=== PATIENT | female | born 1945 | race Caucasian/White ===

== ENCOUNTER 2023-01-06 14:10 | Emergency (ER) | payer MEDICARE, BC, SELFPAY ==
[2023-01-06 14:22] VITALS: BP 123/103; PULSE 90; RESP 19; TEMP 36.6; O2SAT 96; BMI 26.4
--- NOTE | 2023-01-06 14:22 | ED.LOWEXIN ---
HPI - Extremity Injury (Lower) General Chief Complaint: Wound/Laceration Stated Complaint: laceration on R leg? Time Seen by Provider: 01/06/23 14:32 Source: patient Mode of arrival: ambulatory Limitations: no limitations History of Present Illness HPI Narrative: 77 yo female presents to the ER for evaluation of a laceration to the right lower leg sustained yesterday when she accidentally scrapped her leg on the metal frame of a hotel bed. She states it has been intermittently been bleeding since. She also hit her leg on the same area the day before and had swelling and bruising to the leg before she cut it. She is not up to date on her tdap. complaint: leg injury Onset (ago): day(s) (1) Type of Injury: blunt Place: other (hotel) Severity: moderate Relieving factors: immobilization and rest Exacerbating factors: weight bearing, movement and palpation Context: direct blow Associated symptoms: swelling, ambulatory and other (bleeding and bruising) Other symptoms: none Treatments prior to arrival: bandage Related Data Previous Rx's Medication Instructions Recorded amoxicillin 875 mg-potassium 1 tab PO BID #10 tabs 01/06/23 clavulanate 125 mg tablet Allergies Allergy/AdvReac Type Severity Reaction Status Date / Time No Known Allergies Allergy Verified 01/06/23 14:21 Review of Systems Review of Systems: Yes all other systems are reviewed and are negative [facility] Social History Social History Advance Directives: No Advance Directives Information Provided: Yes Physical Exam Vital Signs: Vital Signs: Last Vital Signs Temp 98 F 01/06/23 14:22 Pulse 90 01/06/23 14:22 Resp 19 01/06/23 14:22 BP 123/103 H 01/06/23 14:22 Pulse Ox 96 01/06/23 14:22 O2 Del Method Room Air 01/06/23 14:22 BMI result Body Mass Index 26.4 Appearance: Alert. Oriented X3. No acute distress. HEENT: normal inspection CVS: Normal heart rate and rhythm. Pulses normal. Respiratory: No respiratory distress. Skin: Skin warm and dry. Normal skin color. Normal skin turgor. No rashes. Extremities: right anterior leg with a blood soaked band aid. there is a superficial v-shaped laceration of the lower leg approx 1.5 cm with 2cm surrounding hematoma and ecchymosis extending to the distal 1/2 of the lower leg. no active bleeding. no calf tenderness or swelling Neuro: Oriented X 3. No motor deficit. No sensory deficit. Medications Administered Discontinued Medications Generic Name Dose Route Start Last Admin Trade Name Luís PRN Reason Stop Dose Admin Diphtheria/Tetanus/Acell Pertussis 0.5 ml 01/06/23 14:27 01/06/23 14:30 Diphth,Pertus(Acell),Tet Adult 0.5 Ml Syringe IM 01/06/23 14:28 0.5 ml .ONCE ONE Administration Medical Decision Making Medical Decision Making MDM Narrative: 77 yo female presenting for evaluation of a right lower leg wound and bruising after she accidentally kicked a metal bed frame. needs tdap would cleaned and assess. skin glue and steri strips applied for closure. will prescribe empiric abx given nature of wound. no need for imaging today. signs and symptoms of infection d/w patient. stable for d/c home Differential Diagnosis Differential Diagnoses: The differential diagnosis associated with the presentation includes superficial laceration, deep laceration, hematoma, open tibia fracture less likely Independent Historian Clinical information obtained from an independent historian. History obtained from or confirmed by: Spouse Tests considered The following testing was considered but not selected: considered x-ray tibia Prescription Management I considered prescription management with: Pain Medication and Antibiotic Procedures Laceration Laceration 1: Site: lower extremity Side (If applicable): right Size (cm): 1.5 Description: irregular Depth: simple, single layer Pre-repair: irrigated extensively and deep structures intact Skin layer closed with: other (exofin skin glue and steristrips) Critical Care Time Critical Care Time Critical Care Time: No Discharge Plan Discharge Clinical Impression: Hematoma Laceration of right lower extremity Qualifiers: Encounter type: initial encounter Qualified Code(s): S81.811A - Laceration without foreign body, right lower leg, initial encounter Patient Disposition: Home, Self-Care Instructions: Laceration (DC) Additional Instructions: skin glue and steri strips were used to close your wound today these will come off on their own, usually within a week it is okay to briefly get wet, then pat dry change the dressing daily and monitor for signs of infection take the prescribed antibiotics as directed, complete the entire course and do not miss any doses if you develop new or worsening symptoms call 911 or come back to the ER for further evaluation. Prescriptions: New amoxicillin-pot clavulanate 875-125 mg tablet 1 tab PO BID Qty: 10 0RF Interventions: ED Discharge Assessment Last Done: 01/06/23 14:35
== END 2023-01-06 14:52 | disposition home or self-care (01) ==
LOC: HO.ED 14:39
PROVIDERS: Emergency Provider Emergency Medicine Emergency Medical Services
DX: S81.811A Laceration without foreign body, right lower leg, initial encounter (principal); S80.11XA Contusion of right lower leg, initial encounter; W26.8XXA Contact with other sharp object(s), not elsewhere classified, initial encounter; Y93.89 Activity, other specified; Y92.59 Other trade areas as the place of occurrence of the external cause; Y99.9 Unspecified external cause status
CPT/HCPCS: 12001; 90471; 90715; 99282; 99284

== ENCOUNTER 2023-01-07 16:55 | Emergency (ER) | payer MEDICARE, BC, SELFPAY ==
[2023-01-07 18:10] VITALS: BP 156/87; PULSE 75; RESP 18; TEMP 36.5; O2SAT 98; BMI 26.4
--- NOTE | 2023-01-07 18:17 | ED.GENADULT ---
HPI - General Adult General Chief complaint: Wound/Laceration Stated complaint: Cut on leg, red and swollen Time Seen by Provider: 01/07/23 20:14 Source: patient Mode of arrival: ambulatory Limitations: no limitations History of Present Illness HPI narrative: Patient had abrasion and hematoma right lower extremity 2 days ago was seen here yesterday Steri-Strips and skin glue was applied comes here as she noticed redness around it patient took Augmentin today as prescribed. Patient does have history of MDS platelets count were 36K 2 days ago patient slightly concerned as has slight erythema around the abrasion no fever no chills no pus discharge patient received tetanus shot yesterday Related Data Previous Rx's Medication Instructions Recorded amoxicillin 875 mg-potassium 1 tab PO BID #10 tabs 01/06/23 clavulanate 125 mg tablet doxycycline hyclate 100 mg tablet 100 mg PO BID #20 tabs 01/07/23 Allergies Allergy/AdvReac Type Severity Reaction Status Date / Time No Known Allergies Allergy Verified 01/07/23 18:20 Review of Systems Review of Systems: Yes all other systems are reviewed and are negative [facility] Past Medical History Medical History (Updated 01/08/23 @ 00:01 by Milton Monroy) Thrombocytopenia MDS (myelodysplastic syndrome) Social History Social History Advance Directives: No Advance Directives Information Provided: No Physical Exam ED Vital Signs: Vital Signs - 24 hr 01/07/23 18:10 Temperature 97.7 F Pulse Rate 75 Respiratory Rate 18 Blood Pressure 156/87 H Pulse Oximetry 98 Oxygen Delivery Method Room Air BMI result Body Mass Index 26.4 Appearance: Alert. Oriented X3. No acute distress. CVS: Normal heart rate and rhythm. Pulses normal. Respiratory: No respiratory distress. Equal air entry bilateral, Abdomen: Soft and nontender. Bowel sounds are present, no mass palpable, no CVA tenderness Skin: Skin warm and dry. Superficial hematoma right lower extremity surrounding erythema and warmth with chronic eczematous changes no pus discharge Extremities: No lower extremity edema. No calf tenderness Neuro: Oriented X 3. No motor deficit. Course Course Course Narrative: RME: 77 yold female presents to the ED for swelling/redness/pain at laceration site at ankle. patient states was seen yesterday for laceration at ankle and today having redness/swelling/pain at ankle site. patient only took on dose of her prescribed augmentin. labs and ankle xray ordered Medical Decision Making Medical Decision Making MDM Narrative: Patient with hematoma after abrasion from metal edge of the bed 2 days ago with surrounding redness no signs of infection already on Augmentin x-ray negative for deeper injuries. Patient advised to continue same antibiotics may need doxycycline if the redness get worse Lab Data 01/07/23 18:35 01/07/23 18:35 Labs: Lab Results 01/07/23 Range/Units 18:35 WBC 5.8 (4.8-10.8) X10*3/uL RBC 3.89 L (4.20-5.50) X10*6/uL Hgb 11.9 L (12.0-16.0) g/dl Hct 36.5 L (37.0-47.0) % MCV 93.8 (80.0-98.0) fL MCH 30.6 (27.0-33.0) pg MCHC 32.6 (31.0-35.0) g/dl RDW 13.2 (11.0-16.0) % Plt Count 38 L (160-400) X10*3/uL MPV Not Reportable Immature Gran % (Auto) Cancelled Neut % (Auto) Cancelled Lymph % (Auto) Cancelled Starr % (Auto) Cancelled Eos % (Auto) Cancelled Baso % (Auto) Cancelled Lymph # (Auto) Cancelled Starr # (Auto) Cancelled Eos # (Auto) Cancelled Baso # (Auto) Cancelled Abs Immat Gran (auto) Cancelled Absolute Neuts (auto) Cancelled Absolute Nucleated RBC 0.000 (0.0-0.012) X10*3/uL Nucleated RBC % (auto) 0.0 (0.0-0.2) /100WBC Neutrophils % (Manual) 65 (45-73) % Lymphocytes % (Manual) 24 (20-40) % Atypical Lymphs % (Man) 1 (0-6) % Monocytes % (Manual) 10 (2-11) % Abs Neuts (Manual) Not Reportable Lymphocytes # (Manual) 1.4 (1.2-4.9) X10*3/uL Atyp Lymphs # (Manual) 0.1 x10*3/uL Monocytes # (Manual) 0.6 (0.1-1.2) X10*3/uL Platelet Estimate DECREASED (NORMAL) Plt Morphology Comment NORMAL RBC Morphology NORMAL ESR 5 (0-20) MM/HR Sodium 137 (135-145) mmol/L Potassium 4.1 (3.3-5.1) mmol/L Chloride 102 (96-108) mmol/L Carbon Dioxide 22 (22-29) mmol/L Anion Gap 17 (12-20) BUN 11 (9-16) mg/dL Creatinine 0.82 (0.5-1.4) mg/dL Estim Creat Clear Calc 52.2 Estimated GFR > 60 Random Glucose 88 (60-115) mg/dL Calcium 9.7 (8.4-10.2) mg/dL Total Bilirubin 0.4 (0.0-1.0) mg/dL AST 16 (5-31) U/L ALT 14 (0-31) U/L Alkaline Phosphatase 83 (39-117) U/L C-Reactive Protein 0.54 H (< or = 0.50) mg/dL Total Protein 7.9 (6.5-8.0) g/dL Albumin 4.1 (3.5-5.0) g/dL Discharge Plan Discharge Clinical Impression: Hematoma of right lower leg Patient Disposition: Home, Self-Care Instructions: Hematoma (ED) Additional Instructions: Local Care as advised Keep your right leg elevated Take doxycycline 1 capsule twice daily if redness continues after current antibiotic use Prescriptions: New doxycycline hyclate 100 mg tablet 100 mg PO BID Qty: 20 0RF No Action amoxicillin-pot clavulanate 875-125 mg tablet 1 tab PO BID Qty: 10 0RF Interventions: ED Discharge Assessment Last Done: 01/07/23 20:44 Discharge Date/Time: 01/07/23 20:44
== END 2023-01-07 20:44 | disposition home or self-care (01) ==
PROVIDERS: Emergency Provider Internal Medicine
DX: S80.11XA Contusion of right lower leg, initial encounter (principal); M25.571 Pain in right ankle and joints of right foot; X58.XXXA Exposure to other specified factors, initial encounter; Y93.9 Activity, unspecified; Y92.9 Unspecified place or not applicable; Y99.9 Unspecified external cause status; Z79.899 Other long term (current) drug therapy
CPT/HCPCS: 36415; 73600; 80053; 85007; 85027; 85652; 86140; 99282; 99284